=== PATIENT | male | born 1960 | race Caucasian/White ===

== ENCOUNTER 2024-01-07 17:36 | Emergency (ER) | payer BC ==
[~2024-01-07] VITALS: Ht 165.1 cm; Wt 73.7 kg
[2024-01-07 17:38] VITALS: TEMP 97.8
[2024-01-07 20:42] VITALS: BP 179/101; PULSE 68; RESP 18; O2SAT 96
== END 2024-01-07 20:50 | disposition home or self-care (01) ==
LOC: ER 17:36
DX: S61.211A Laceration without foreign body of left index finger without damage to nail, initial encounter (principal); Z88.0 Allergy status to penicillin; Z88.6 Allergy status to analgesic agent; W31.2XXA Contact with powered woodworking and forming machines, initial encounter; Y93.89 Activity, other specified; Y92.89 Other specified places as the place of occurrence of the external cause; Y99.8 Other external cause status
CPT/HCPCS: 12001; 73130; 99283